=== PATIENT | female | born 1995 | race Caucasian/White ===

== ENCOUNTER → 2020-08-28 | Outpatient (CLI) | payer OTHER | LOC: RAD 16:01 | DX: S80.11XA Contusion of right lower leg, initial encounter (principal); S83.511A Sprain of anterior cruciate ligament of right knee, initial encounter ==

== ENCOUNTER 2020-11-20 08:42 | Emergency (ER) | payer MEDICARE ==
[2020-11-20] MEDS ORDERED: LAMOTRIGINE150 MG PO (08:59)
[2020-11-20] MEDS ORDERED: VRAYLAR6 MG PO (08:59)
[2020-11-20] MEDS ORDERED: BUSPIRONE5 MG PO (09:00)
[2020-11-20 10:19] VITALS: BP 138/89
== END 2020-11-20 10:18 | disposition home or self-care (01) ==
LOC: ED 08:42
DX: F41.0 Panic disorder [episodic paroxysmal anxiety] (principal); F20.9 Schizophrenia, unspecified; F31.9 Bipolar disorder, unspecified; F17.210 Nicotine dependence, cigarettes, uncomplicated